=== PATIENT | female | born 1975 | race Caucasian/White ===

== ENCOUNTER 2017-08-01 21:19 | Emergency (ER) | payer MEDICARE, OTHER ==
--- NOTE | 2017-08-01 21:49 | ED Physician Documentation ---
General Adult - HISTORIAN Historian: patient - HPI Stated Complaint: eyes itch Chief Complaint: General Adult Additional Information: Seasonal allergies, with eyes burning, itching, feeling dry. Has lost recommendations from eye doctor for drops. - ROS CONST: denies: fever - PAST HX Past History: other (brain tumor, radiation) - SOCIAL HX Smoking History: non-smoker - FAMILY HX Family History: No - REVIEWED ASSESSMENTS Nursing Assessment Reviewed: Yes Vitals Reviewed: Yes General Adult Physical Exam - PHYSICAL EXAM GENERAL APPEARANCE: obese EENT: eye inspection normal, ENT inspection normal, CONSUELO (EOMI), no nystagmus NECK: normal inspection, supple RESPIRATORY: no resp distress BACK: other (fluid movements) SKIN: warm/dry, normal color EXTREMITIES: no evidence of injury NEURO: CN's nml as tested, motor nml, sensation nml, cognition normal Discharge Clincal Impression: Dry eyes Referrals: Primary Doctor,No [Primary Care Provider] - 2 Days Additional Instructions: Systane Gel or similar non-name brand products will keep your eyes moist while you sleep. There are also eye drops for day time use by the same bottle feeder. The non name brand products wok as well. Or you can ask the pharmacist for assistance. Condition: Good Disposition: 01 HOME, SELF-CARE Decision to Admit: NO Decision Time: 21:50
[2017-08-02 22:37] VITALS: BP 107/63
== END 2017-08-01 22:00 | disposition home or self-care (01) ==
LOC: ED 21:19
DX: H04.123 Dry eye syndrome of bilateral lacrimal glands (principal)
CPT/HCPCS: 99282

== ENCOUNTER 2018-12-16 16:50 | Emergency (ER) | payer MEDICARE, OTHER ==
[2018-12-16] MEDS: 0.9 % SODIUM CHLORIDE 1,000 ML IV ONE ×2 (17:00→18:50)
--- NOTE | 2018-12-16 17:10 | ED Physician Documentation ---
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 SHe also has a brain tumor from moms report. She has no new injury. She was not aware she had a fever. No rash. No sick contacts. Per mom no other new sympotms due to this illness and weakness etc) - ROS CONST: fever EYES/ENT: denies: problems with vision, sore throat CVS/RESP: cough. denies: chest pain, shortness of breath GI/: vomiting, nausea, diarrhea. denies: abdominal pain MS/SKIN/LYMPH: none - PAST HX Past History: other (angy tumor -shut and CVA in 2017 ) Allergies/Adverse Reactions: Allergies Allergy/AdvReac Type Severity Reaction Status Date / Time Penicillins Allergy Intermediate Rash Verified 12/16/18 17:40 ranitidine [From Zantac] Allergy Intermediate Rash Verified 12/16/18 17:40 Home Medications: Ambulatory Orders Medication Instructions Recorded NK 08/02/17 - SOCIAL HX Smoking History: non-smoker Alcohol Use: none Drug Use: none - FAMILY HX Family History: No - VITAL SIGNS Vital Signs: Vital Signs Temp Pulse Resp BP Pulse Ox 107/63 08/02/17 22:40 - REVIEWED ASSESSMENTS Nursing Assessment Reviewed: Yes Vitals Reviewed: Yes Progress - Progress Progress: 1820: [facility] will accept ER Dr Tamika MASON ED Results Lab/Radiology - Orders Orders: ED Orders Category Date Time Status IV Started NOW Care 12/16/18 17:00 Active CHEST 1VIEW [RAD] Stat Exams 12/16/[address] BRAIN W/O CONTRAST Stat Exams 12/16/18 Ordered BLOOD CULTURE Stat Lab 12/16/18 Ordered CBC/PLATELET/DIFF Stat Lab 12/16/18 16:59 Ordered CMP Stat Lab 12/16/18 17:00 Received INFLUENZA A&B Stat Lab 12/16/18 16:59 Uncollected LACTATE Stat Lab 12/16/18 17:00 Received SERUM HCG Stat Lab 09/19/19 Ordered UA W/MICRO IF INDICATED Routine Lab 12/16/18 17:00 Ordered 0.9 % Sodium Chloride [Normal Saline] 1,000 ml Med 12/16/18 17:00 Active IV NOW Chem Sticks Med 12/16/18 18:00 Ordered 1 each CHEMQ General Adult Physical Exam - PHYSICAL EXAM GENERAL APPEARANCE: no distress EENT: eye inspection normal, ENT inspection normal, no signs of dehydration NECK: normal inspection RESPIRATORY: wheezes (RIght upper lob ) CVS: reg rate & rhythm, heart sounds normal, PMI nml ABDOMEN: soft, normal bowel sounds, no distension, non-tender, other (denies cu rrent nausea ) BACK: normal inspection, no CVA tenderness SKIN: diaphoresis, other (warm ) EXTREMITIES: non-tender NEURO: oriented X3, weakness/sensory loss (left sided which is normal ), speech/cognition abnml (per mom she has slurred speech but this is not normal per mom ), sensory/motor deficit. No: facial droop Discharge Clincal Impression: Altered mental status Qualifiers: Altered mental status type: unspecified Qualified Code(s): R41.82 - Altered mental status, unspecified Referrals: Primary Doctor,No [Primary Care Provider] - 2 Days Comments: Transfer to Dr Lundberg accepting Condition: Serious Disposition: 02 XFER SHT-TRM HOSP Decision to Admit: NO Date of Decison to Admit: 12/16/18 Decision Time: 18:27
[2018-12-16 17:19] LABS: eGFR (Non-African) > 60
--- NOTE | 2018-12-16 18:52 | Diagnostic Imaging Report ---
EMY PERLA [facility] [address] [facility] [address] [place], [place]. [address] Report Submission Date: Dec 16, 2018 6:00:27 PM CDT Patient Study Name: DENTON WOODWARD Date: Dec 16, 2018 5:14:36 PM CDT Modality Type: CT\SR Gender: F Description: CT BRAIN W/O CONTRAST : 79 Institution: [facility] Physician: EMY PERLA CT head History: Mental status change HX stroke Note time : 12/16/2018 5:30:27 PM User : Renetta Bellamy CT HEAD W/O, MENTAL STATUS CHANGES, HX OF STROKE, NEG HCG PER ED the No comparison studies No midline shift. Shunt tubing tip at the 3rd ventricle. Lateral ventriculomegaly/ hydrocephalus is noted with extensive periventricular hypodensities. Hyperdensity noted in the left parietal lobe series 2 image 15 of indeterminate chronicity Lacunar infarct in the right basal ganglia Paranasal air sinuses and mastoid air cells are well aerated Tiny calcification at the ons. Impression: 1. Shunt tubing in place, hydrocephalus is present. Stent blockage possible. Extensive hypodensities in the periventricular white matter, differential diagnosis includes periventricular small vessel ischemic disease and/or CSF seepage due to hydrocephalus 2. Lacunar infarct right basal ganglia. No midline shift. 3. Faint hyperdensities in the left parietal lobe of indeterminate chronicity, unclear if related to calcification versus less likely subarachnoid hemorrhage. Recommend comparison with prior examination and followup Electronically signed on Dec 16, 2018 6:00:27 PM CDT by: Bibiana SHARP
--- NOTE | 2018-12-16 18:53 | Diagnostic Imaging Report ---
EMY PERLA [facility] [address] [facility] [address] [place], [place]. [address] Report Submission Date: Dec 16, 2018 6:16:39 PM CDT Patient Study Name: DENTON WOODWARD Date: Dec 16, 2018 5:21:02 PM CDT Modality Type: DX Gender: F Description: CHEST 1VIEW : 79 Institution: [facility] Physician: EMY PERLA Examination: Portable chest History: COUGH, FEVER Comparison exam: None provided. Findings: Single view of the chest demonstrates a normal cardiac and mediastinal silhouette. Lung mae without focal infiltrate. No blunting of the costophrenic margins. 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 Osseous structures are appropriate for age. Impression: No acute pulmonary process. Electronically signed on Dec 16, 2018 6:16:39 PM CDT by: Jem SHARP
[2018-12-16 19:17] VITALS: BP 121/73
[2018-12-17 06:11] LABS: APPEARANCE,URINE CLEAR (CLEAR); COLOR,URINE AMBER (YELLOW); OCCULT BLOOD,URINE 3+ (NEGATIVE); UROBILINOGEN URINE >=8.0 Eu (0.2-1.0)
[2018-12-17 10:18] LABS: SEGMENTED NEUTROPHILS % 81 % (39-79)
== END 2018-12-16 18:56 | disposition short-term general hospital (02) ==
LOC: ED 16:50
DX: R41.82 Altered mental status, unspecified (principal); R19.7 Diarrhea, unspecified; R11.2 Nausea with vomiting, unspecified
CPT/HCPCS: 70450; 71045; 80053; 81002; 83605; 84703; 85025; 87040; 87086; 87400; 96360; 99282; 99284; J7030; 87186; S1016

== ENCOUNTER 2019-01-09 15:15 | Emergency (ER) | payer MEDICARE, OTHER ==
[2019-01-10 07:10] LABS: APPEARANCE,URINE CLOUDY (CLEAR); COLOR,URINE YELLOW (YELLOW)
[2019-01-10 07:11] LABS: OCCULT BLOOD,URINE 3+ (NEGATIVE); PH URINE 6.5 (5.0 - 8.0); UROBILINOGEN URINE 0.2 Eu (0.2-1.0)
== END 2019-01-09 16:04 | disposition home IV services (08) ==
LOC: ED 15:15
DX: B37.3 Candidiasis of vulva and vagina (principal); N30.00 Acute cystitis without hematuria
CPT/HCPCS: 81002; 99281; 99282